=== PATIENT | female | born 1975 | race Caucasian/White ===

== ENCOUNTER → 2019-05-12 | Day surgery (SDC) | payer MEDICARE, OTHER ==
[~2019-05-12] MED LIST: ALBUTEROL SULFATE 2.5 MG/3 ML NEBU. NEB PRN; ATROPINE 0.5 MG/5 ML DISP.SYRIN. IV PRN; FAMO-63 PO; FLUO20CA16 PO; HYDROCORTISONE SOD SUCC/PF 100 MG/2 ML VIAL. ONE; IBUP800T19 PO; IV RINGERS SOLUTION,LACTATED 1,000 ML IV SCH; LACT1CAP8 PO; LIDOCAINE 2% PF Vial for OR 5 ML VIAL. ONE; NALOXONE 0.4 MG/ML VIAL. IV PRN; ONDANSETRON PF 4 MG/2 ML VIAL. IV PRN; PANT40TA5 PO; PRED20TA PO; PROM25TA10 PO; PROPOFOL 20 ML IV ONE; VARE1TAB20 PO
[2019-05-12 09:10] LABS: U PREG PATIENT NEGATIVE (NEG)
[2019-05-12 10:20] VITALS: BP 125/72
== END ==
LOC: SURG 08:39
PROVIDERS: ATTEND Internal Medicine Gastroenterology
DX: K29.70 Gastritis, unspecified, without bleeding (principal); K21.9 Gastro-esophageal reflux disease without esophagitis; F32.9 Major depressive disorder, single episode, unspecified; F41.9 Anxiety disorder, unspecified; K57.30 Diverticulosis of large intestine without perforation or abscess without bleeding; Z87.442 Personal history of urinary calculi; Z98.890 Other specified postprocedural states
CPT/HCPCS: 43239; 81025; J2704; J7120; J2001